=== PATIENT | female | born 1995 | race Caucasian/White ===

== ENCOUNTER 2019-06-08 15:14 | Emergency (ER) | payer MEDICAID ==
[~2019-06-08] VITALS: Ht 165.1 cm; Wt 70.0 kg
[~2019-06-08 15:14] MED LIST: CLOT15CR74 TP
--- NOTE | 2019-06-08 15:55 | NUR ---
renu comm called.
[2019-06-08] MEDS ORDERED: ketorolac trometh inj. 60 MG/2 ML VIAL IM ONE (16:25)
--- NOTE | 2019-06-08 16:35 | NUR ---
pt filed report yesterday shas comm confirmed. case number is [id number]
[2019-06-08 17:00] VITALS: BP 124/56
[2019-06-08] MEDS ORDERED: CYCL-1 PO (17:00)
== END 2019-06-08 17:11 | disposition home or self-care (01) ==
LOC: EEVIPCON 15:14 → ER 15:14
DX: S13.4XXA Sprain of ligaments of cervical spine, initial encounter (principal); S09.8XXA Other specified injuries of head, initial encounter; R06.02 Shortness of breath; Z79.899 Other long term (current) drug therapy; Y08.89XA Assault by other specified means, initial encounter; Y93.89 Activity, other specified; Y92.89 Other specified places as the place of occurrence of the external cause; Y99.8 Other external cause status
CPT/HCPCS: 70450; 72125; 96372; 99284; J1885

== ENCOUNTER 2019-10-03 15:16 | Emergency (ER) | payer MEDICAID ==
[~2019-10-03] VITALS: Ht 165.1 cm; Wt 73.0 kg
[~2019-10-03 15:16] MED LIST changes: +CYCL-1 PO
[2019-10-03 15:33] VITALS: BP 132/87
[2019-10-03] MEDS: ketorolac trometh. 30mg/ml inj. IM ONE ×3 (16:25→16:49)
[2019-10-03] MEDS ORDERED: ondansetron 4mg rapidly disintigrating tab PO ONE (16:25)
[2019-10-03] MEDS ORDERED: CYCL-1 PO (16:53)
[2019-10-03] MEDS ORDERED: ketorolac trometh. 30mg/ml inj. IM ONE (17:40)
== END 2019-10-03 17:53 | disposition home or self-care (01) ==
LOC: ER 15:17
DX: S16.1XXA Strain of muscle, fascia and tendon at neck level, initial encounter (principal); Z79.2 Long term (current) use of antibiotics; Z79.899 Other long term (current) drug therapy; V89.2XXA Person injured in unspecified motor-vehicle accident, traffic, initial encounter; Y93.89 Activity, other specified; Y92.410 Unspecified street and highway as the place of occurrence of the external cause; Y99.8 Other external cause status
CPT/HCPCS: 71045; 72040; 96372; 99283; J1885

== ENCOUNTER 2023-06-20 10:58 | Emergency (ER) | payer MEDICAID ==
[~2023-06-20] VITALS: Ht 165.1 cm; Wt 70.5 kg
[2023-06-20 11:30] LABS: BILIRUBIN,URINE NEGATIVE (Neg); CLARITY,URINE CLEAR (Clear); COLOR,URINE YELLOW (Yellow); GLUCOSE, URINE NEGATIVE (Neg); KETONES,URINE TRACE mg/dl (Neg); LEUKOCYTE ESTERASE ,URINE NEGATIVE (Neg); NITRITES, URINE NEGATIVE (Neg); OCCULT BLOOD,URINE NEGATIVE (Neg); PH,URINE 6.5 (4.8-8.0); PROTEIN,URINE NEGATIVE (Neg); UROBILINOGEN,URINE 0.2 E.U/dL (0.2-1.0)
[2023-06-20 11:32] LABS: URINE HCG NEGATIVE (NEG)
[2023-06-20 11:35] LABS: UA COLLECTION TYPE NON-SPECIFIED
[2023-06-20 12:02] LABS: BASOPHILS % (AUTO) 0.3 % (0-1); EOSINOPHILS % (AUTO) 0.8 % (0-6); HEMATOCRIT 40.5 % (35.0-45.0); HEMOGLOBIN 13.3 g/dl (12.0-16.0); LYMPHOCYTES % (AUTO) 35.1 % (21-51); MEAN CORPUSCULAR HGB CONC 32.7 g/dL (33.0-36.5); MEAN CORPUSCULAR VOLUME 82.6 FL (78-98); MEAN PLATELET VOLUME 7.1 FL (7.4-10.4); MONOCYTES # (AUTO) 0.3 X10'3 (0-0.9); MONOCYTES % (AUTO) 5.8 % (2-12); NEUTROPHILS # (AUTO) 3.4 X10'3 (1.8-7.7); PLATELET COUNT 228 X10'3 (140-440); RED CELL DISTRIBUTION WIDTH 13.5 % (11.5-14.5); WHITE BLOOD COUNT 5.8 X10'3 (4.5-11.0)
[2023-06-20 12:23] LABS: ALANINE AMINOTRANSFERASE 20 U/L (12-78); ALBUMIN 4.2 G/DL (3.4-5.0); ALBUMIN/GLOBULIN RATIO 1.4 (1.1-1.5); ALKALINE PHOSPHATASE 79 IU/L (46-116); ANION GAP 6 (8-16); ASPARTATE AMINO TRANSFERASE 18 U/L (10-37); BILIRUBIN,TOTAL 0.2 MG/DL (0.1-1.0); BLOOD UREA NITROGEN 12 MG/DL (7-18); BUN/CREATININE RATIO 20.3 (10.0-20.0); CALCIUM 9.2 MG/DL (8.5-10.1); CHLORIDE 104 MMOL/L (99-107); CREATININE 0.59 MG/DL (0.40-0.90); GLUCOSE 94 MG/DL (70-104); SODIUM 140 MMOL/L (135-145); TOTAL CARBON DIOXIDE 29.8 MMOL/L (24-32); TOTAL PROTEIN 7.3 G/DL (6.4-8.2); eCRCL 129 ML/MIN; eGFR > 90 ML/MIN
[2023-06-20] MEDS ORDERED: NAPR-56 PO (12:29)
[2023-06-20 14:09] VITALS: BP 126/82; PULSE 67; RESP 16; TEMP 97.6; O2SAT 100
--- NOTE | 2023-06-20 15:11 | NUR ---
Pt. documentation completed by COTTON CHOPPER reviewed and concur with COTTON CHOPPER.
== END 2023-06-20 14:11 | disposition home or self-care (01) ==
LOC: ER 10:58
DX: S39.012A Strain of muscle, fascia and tendon of lower back, initial encounter (principal); Z79.899 Other long term (current) drug therapy; X58.XXXA Exposure to other specified factors, initial encounter; Y93.89 Activity, other specified; Y92.89 Other specified places as the place of occurrence of the external cause; Y99.8 Other external cause status
CPT/HCPCS: 36415; 80053; 81003; 81025; 85025; 99283

== ENCOUNTER 2023-08-16 10:39 | Emergency (ER) | payer MEDICAID ==
[~2023-08-16] VITALS: Ht 165.1 cm; Wt 68.2 kg
[2023-08-16 13:14] VITALS: BP 102/37; PULSE 112; RESP 16; TEMP 99; O2SAT 98
== END 2023-08-16 13:17 | disposition home or self-care (01) ==
LOC: ER 10:40
DX: R09.81 Nasal congestion (principal); J10.1 Influenza due to other identified influenza virus with other respiratory manifestations; Z79.899 Other long term (current) drug therapy
CPT/HCPCS: 87502; 87503; 99283

== ENCOUNTER 2024-02-03 08:03 | Emergency (ER) | payer BC, MEDICAID ==
[~2024-02-03] VITALS: Ht 162.6 cm; Wt 79.5 kg
[2024-02-03 08:51] LABS: BILIRUBIN,URINE NEGATIVE (Neg); CLARITY,URINE CLEAR (Clear); COLOR,URINE STRAW (Yellow); GLUCOSE, URINE NEGATIVE (Neg); KETONES,URINE NEGATIVE (Neg); LEUKOCYTE ESTERASE ,URINE NEGATIVE (Neg); NITRITES, URINE NEGATIVE (Neg); OCCULT BLOOD,URINE NEGATIVE (Neg); PROTEIN,URINE NEGATIVE (Neg); UROBILINOGEN,URINE 0.2 E.U/dL (0.2-1.0)
[2024-02-03 08:52] LABS: UA COLLECTION TYPE CLN CATCH MIDSTREAM
[2024-02-03 08:53] LABS: URINE HCG NEGATIVE (NEG)
[2024-02-03] MEDS ORDERED: CEPH-585 PO (09:07)
[2024-02-03] MEDS: cephalexin 250mg capsule PO ONE (09:17)
[2024-02-03] MEDS ORDERED: MEBE100T11 PO (09:26)
[2024-02-03 09:27] VITALS: BP 128/80; PULSE 73; RESP 16; TEMP 98.6; O2SAT 95
[2024-02-03 11:29] LABS: BASOPHILS % (AUTO) 0.3 % (0-1); EOSINOPHILS # (AUTO) 0.1 X10'3 (0-0.9); EOSINOPHILS % (AUTO) 0.9 % (0-6); HEMATOCRIT 42.7 % (35.0-45.0); HEMOGLOBIN 14.1 g/dl (12.0-16.0); LYMPHOCYTES # (AUTO) 1.9 X10'3 (1.1-4.8); LYMPHOCYTES % (AUTO) 24.6 % (21-51); MEAN CORPUSCULAR HEMOGLOBIN 27.8 PG (27.0-31.0); MEAN CORPUSCULAR VOLUME 84.1 FL (78-98); MEAN PLATELET VOLUME 7.2 FL (7.4-10.4); MONOCYTES # (AUTO) 0.3 X10'3 (0-0.9); MONOCYTES % (AUTO) 4.4 % (2-12); NEUTROPHILS # (AUTO) 5.4 X10'3 (1.8-7.7); NEUTROPHILS % (AUTO) 69.8 % (42-75); PLATELET COUNT 242 X10'3 (140-440); RED BLOOD COUNT 5.08 X10'6 (4.20-5.60); RED CELL DISTRIBUTION WIDTH 13.8 % (11.5-14.5); WHITE BLOOD COUNT 7.8 X10'3 (4.5-11.0)
[2024-02-03 11:36] LABS: ALBUMIN 4.2 G/DL (3.4-5.0); ANION GAP 5 (8-16); BLOOD UREA NITROGEN 8 MG/DL (7-18); BUN/CREATININE RATIO 11.1 (10.0-20.0); CALCIUM 9.2 MG/DL (8.5-10.1); CHLORIDE 104 MMOL/L (99-107); CREATININE 0.72 MG/DL (0.40-0.90); GLUCOSE 90 MG/DL (70-104); POTASSIUM 3.4 MMOL/L (3.5-5.1); SODIUM 140 MMOL/L (135-145); TOTAL CARBON DIOXIDE 30.6 MMOL/L (24-32); eCRCL 101 ML/MIN; eGFR > 90 ML/MIN
[2024-02-06 06:26] LABS: CHLAMYDIA TRACHOMATIS, NAA Negative (Negative)
== END 2024-02-03 11:52 | disposition home or self-care (01) ==
LOC: ER 08:04
DX: R35.0 Frequency of micturition (principal); R39.11 Hesitancy of micturition
CPT/HCPCS: 36415; 80048; 81003; 81025; 85025; 87491; 99283

== ENCOUNTER 2024-03-19 10:26 | Emergency (ER) | payer BC ==
[~2024-03-19] VITALS: Ht 162.6 cm; Wt 79.5 kg
[~2024-03-19 10:26] MED LIST changes: +CEPH-585 PO; +MEBE100T11 PO
[2024-03-19 10:28] VITALS: BP 116/76; PULSE 65; TEMP 98.4; O2SAT 100
[2024-03-19 11:04] VITALS: RESP 18
[2024-03-19] MEDS: ketorolac tromethamine 15mg/ml inj. IM ONE (11:04)
[2024-03-19] MEDS: medroxyprogesterone acet. 2.5mg tablet PO ONE (11:13)
[2024-03-19] MEDS ORDERED: ONDA-245 PO (11:25)
[2024-03-19] MEDS ORDERED: HYDR-3972 PO (11:25)
[2024-03-19] MEDS ORDERED: MEDR5TAB PO (11:25)
== END 2024-03-19 11:36 | disposition home or self-care (01) ==
LOC: ER 10:26
DX: N94.6 Dysmenorrhea, unspecified (principal); Z79.2 Long term (current) use of antibiotics; Z79.899 Other long term (current) drug therapy
CPT/HCPCS: 96372; 99283; J1885

== ENCOUNTER 2024-05-01 14:28 | Outpatient (CLI) | payer BC ==
[~2024-05-01 14:28] MED LIST changes: +MEDR5TAB PO; +ONDA-245 PO
[2024-05-01 15:27] LABS: BASOPHILS % (AUTO) 0.4 % (0-1); EOSINOPHILS # (AUTO) 0.1 X10'3 (0-0.9); EOSINOPHILS % (AUTO) 1.1 % (0-6); HEMOGLOBIN 14.2 g/dl (12.0-16.0); LYMPHOCYTES # (AUTO) 1.7 X10'3 (1.1-4.8); LYMPHOCYTES % (AUTO) 28.4 % (21-51); MEAN CORPUSCULAR HEMOGLOBIN 27.7 PG (27.0-31.0); MEAN CORPUSCULAR HGB CONC 33.1 g/dL (33.0-36.5); MEAN CORPUSCULAR VOLUME 83.7 FL (78-98); MEAN PLATELET VOLUME 7.6 FL (7.4-10.4); MONOCYTES # (AUTO) 0.3 X10'3 (0-0.9); MONOCYTES % (AUTO) 5.7 % (2-12); NEUTROPHILS # (AUTO) 3.8 X10'3 (1.8-7.7); NEUTROPHILS % (AUTO) 64.4 % (42-75); PLATELET COUNT 254 X10'3 (140-440); RED BLOOD COUNT 5.14 X10'6 (4.20-5.60); RED CELL DISTRIBUTION WIDTH 13.5 % (11.5-14.5); WHITE BLOOD COUNT 5.9 X10'3 (4.5-11.0)
[2024-05-01 15:50] LABS: ALANINE AMINOTRANSFERASE 17 U/L (12-78); ALBUMIN 4.5 G/DL (3.4-5.0); ALBUMIN/GLOBULIN RATIO 1.2 (1.1-1.5); ALKALINE PHOSPHATASE 75 IU/L (46-116); ANION GAP 8 (8-16); ASPARTATE AMINO TRANSFERASE 14 U/L (10-37); BILIRUBIN,TOTAL 0.4 MG/DL (0.1-1.0); BLOOD UREA NITROGEN 10 MG/DL (7-18); BUN/CREATININE RATIO 13.9 (10.0-20.0); CALCIUM 9.4 MG/DL (8.5-10.1); CHLORIDE 104 MMOL/L (99-107); CREATININE 0.72 MG/DL (0.40-0.90); GLUCOSE 87 MG/DL (70-104); POTASSIUM 3.8 MMOL/L (3.5-5.1); SODIUM 142 MMOL/L (135-145); THYROID STIMULATING HORMONE 1.57 ulU/ml (0.34-4.50); TOTAL CARBON DIOXIDE 29.6 MMOL/L (24-32); TOTAL PROTEIN 8.3 G/DL (6.4-8.2); eGFR > 90 ML/MIN
[2024-05-01 15:58] LABS: % IRON SATURATION 25 % (11-46); IRON 95 UG/DL (49-151); TOTAL IRON BINDING CAPACITY 383 UG/DL (259-388)
[2024-05-01 15:59] LABS: HEMOGLOBIN A1C 5.2 % (4.5-6.2)
[2024-05-01 16:15] LABS: FERRITIN 69 NG/ML (8-252)
[2024-05-01 16:55] LABS: HIV ANTIBODY 1&2 RAPID NON-REACTIVE (Neg)
[2024-05-03 05:17] LABS: HBSAG SCREEN Negative (Negative); HEP B CORE AB, TOT Negative (Negative); HEPATITIS C VIRUS ANTIBODY Non Reactive (Non Reactive)
[2024-05-03 08:00] LABS: FOLATE SERUM(FOLIC) 18.4 ng/mL (>3.0)
[2024-05-03 08:55] LABS: THYROXINE (T4) 8.4 ug/dL (4.5-12.0); VITAMIN D, 25-HYDROXY 50.6 ng/mL (30.0-100.0)
== END 2024-05-01 23:59 | disposition home or self-care (01) ==
LOC: RAD 14:28
PROVIDERS: ATTEND Physician Assistant
DX: Z20.2 Contact with and (suspected) exposure to infections with a predominantly sexual mode of transmission (principal); R53.83 Other fatigue; Z86.32 Personal history of gestational diabetes; Z76.89 Persons encountering health services in other specified circumstances
CPT/HCPCS: 36415; 80053; 82306; 82607; 82728; 82746; 83036; 83525; 83540; 83550; 84436; 84443; 85025; 86592; 86703; 86704; 86706; 86803; 87340; 87522

== ENCOUNTER 2024-06-08 19:20 | Emergency (ER) | payer BC ==
[~2024-06-08] VITALS: Ht 160 cm; Wt 75.0 kg
[2024-06-08 19:35] VITALS: BP 121/78; PULSE 85; TEMP 98; O2SAT 98
[2024-06-08] MEDS ORDERED: TIZA4CAP PO (19:57)
[2024-06-08] MEDS: tizanidine 4mg tablet PO PRN (20:18)
[2024-06-08] MEDS: ketorolac trometh 30MG/ML vial 30 MG/ML VIAL IM ONE (20:19)
[2024-06-08 20:24] VITALS: RESP 16
== END 2024-06-08 20:25 | disposition home or self-care (01) ==
LOC: ER 19:21
DX: S46.911A Strain of unspecified muscle, fascia and tendon at shoulder and upper arm level, right arm, initial encounter (principal); Z79.2 Long term (current) use of antibiotics; Z79.899 Other long term (current) drug therapy; X50.0XXA Overexertion from strenuous movement or load, initial encounter; Y93.89 Activity, other specified; Y92.89 Other specified places as the place of occurrence of the external cause; Y99.8 Other external cause status
CPT/HCPCS: 96372; 99283; J1885